=== PATIENT | female | born 1955 | race Caucasian/White ===

== ENCOUNTER 2020-05-11 08:43 | Outpatient (REF) | payer OTHER, SELFPAY ==
[2020-05-11 09:17] LABS: COVID-19 Test Negative (Negative)
== END 2020-05-11 08:44 | disposition home or self-care (01) ==
LOC: HO.EMPCOV 08:43
PROVIDERS: PCP Internal Medicine; Visit Provider Internal Medicine
DX: Z20.828 Contact with and (suspected) exposure to other viral communicable diseases (principal)
CPT/HCPCS: 87635; C9803

== ENCOUNTER 2020-05-13 08:45 | Outpatient (REF) | payer OTHER, SELFPAY ==
[2020-05-13 09:03] LABS: COVID-19 Test Negative (Negative)
== END 2020-05-13 08:46 | disposition home or self-care (01) ==
LOC: HO.EMPCOV 08:45
PROVIDERS: Visit Provider Internal Medicine
DX: Z20.828 Contact with and (suspected) exposure to other viral communicable diseases (principal)
CPT/HCPCS: 87635; C9803

== ENCOUNTER 2020-05-31 12:31 | Outpatient (REF) | payer OTHER, SELFPAY ==
[2020-05-31 14:16] LABS: COVID-19 Test Negative (Negative); IDNOW Serial# 55D5AD1C
== END 2020-05-31 12:32 | disposition home or self-care (01) ==
LOC: HO.EMPCOV 12:31
PROVIDERS: PCP Internal Medicine; Visit Provider Internal Medicine
DX: Z20.828 Contact with and (suspected) exposure to other viral communicable diseases (principal)
CPT/HCPCS: 87635; C9803

== ENCOUNTER 2023-01-29 08:41 | Outpatient (REF) | payer OTHER, SELFPAY ==
--- NOTE | ~2023-01-29 | XR_ITS ---
EXAMINATION: XR LUMBOSACRAL SPINE CLINICAL INFORMATION: Left lower back pain. COMPARISON: None available. TECHNIQUE: Three views of the lumbosacral spine. FINDINGS: Slight leftward curvature of the lumbar spine. Small pelvic calcifications are likely vascular. Extensive atherosclerotic aortoiliac calcifications. Bones are diffusely demineralized. Lumbar vertebral body heights are preserved. Mild loss of disc space height with degenerative changes at L4-L5. Facet arthritis in the lower lumbar spine. XR/XR lumbar spine 2-3V IMPRESSION: Mild loss of disc space height with degenerative changes at L4-L5. Additional imaging with CT scan or MRI should be considered for better visualization as these modalities are much more sensitive for detection of fracture or other underlying pathology.
[2023-01-29 09:07] LABS: MANUAL DIFF FLAG NO
[2023-01-29 09:29] LABS: Basophils Absolute Auto 0.1 X10*3/uL (0.0-0.2); Basophils Percent Auto 1.2 % (0-2); Eosinophils Absolute Auto 0.2 X10*3/uL (0.0-0.4); Eosinophils Percent Auto 2.2 % (0-4); Hematocrit 45.9 % (37.0-47.0); Hemoglobin 15.7 g/dl (12.0-16.0); Imm Gran Abs Auto 0.04 X10*3/uL (0.00-0.03); Imm Gran Pct Auto 0.5 % (0.0-0.4); Lymphocytes Absolute Auto 1.8 X10*3/uL (1.2-4.9); Lymphocytes Percent Auto 23.5 % (20-40); Mean Corpuscular HGB Conc 34.2 g/dl (31.0-35.0); Mean Corpuscular Hemoglobin 31.7 pg (27.0-33.0); Mean Corpuscular Volume 92.5 fL (80.0-98.0); Mean Platelet Volume 10.4 fL (9.4-12.3); Monocytes Absolute Auto 0.5 X10*3/uL (0.1-1.2); Neutrophils Percent Auto 65.6 % (45-73); Platelet Count 225 X10*3/uL (160-400); Red Blood Count 4.96 X10*6/uL (4.20-5.50); Red Cell Distribution Width 12.5 % (11.0-16.0); White Blood Count 7.6 X10*3/uL (4.8-10.8)
[2023-01-29 10:35] LABS: Alanine Aminotransferase 12 U/L (0-31); Alkaline Phosphatase 83 U/L (39-117); Anion Gap 13 (12-20); Aspartate Amino Transferase 16 U/L (5-31); Bilirubin Total 0.7 mg/dL (0.0-1.0); Blood Urea Nitrogen 10 mg/dL (9-16); Calcium 9.5 mg/dL (8.4-10.2); Carbon Dioxide 27 mmol/L (22-29); Chloride 104 mmol/L (96-108); Cholesterol 201 mg/dL (<200); Estimated Glomerular Filt Rate > 60; Glucose Random 101 mg/dL (60-115); HDL Cholesterol 48 mg/dL (>40); LDL Cholesterol Calculated 130 mg/dL (<100); Potassium 3.7 mmol/L (3.3-5.1); Sodium 140 mmol/L (135-145); Total Protein 6.9 g/dL (6.5-8.0); Triglycerides 118 mg/dL (<150)
== END 2023-01-29 08:42 | disposition home or self-care (01) ==
LOC: HO.LAB 08:41
PROVIDERS: PCP Internal Medicine; Visit Provider Internal Medicine Sports Medicine
DX: Z13.220 Encounter for screening for lipoid disorders (principal); M54.50 Low back pain, unspecified; I10 Essential (primary) hypertension
CPT/HCPCS: 36415; 72100; 80053; 80061; 85025

== ENCOUNTER 2023-03-16 14:53 | Outpatient (REF) | payer OTHER, SELFPAY | END 2023-03-16 14:54 | disposition home or self-care (01) | LOC: HO.LAB 14:53 | PROVIDERS: PCP Internal Medicine; Visit Provider Internal Medicine | DX: I10 Essential (primary) hypertension (principal) | CPT/HCPCS: 36415; 80051; 82565; 84520 ==

== ENCOUNTER 2023-07-06 08:12 | Outpatient (REF) | payer OTHER, SELFPAY ==
--- NOTE | ~2023-07-06 | MR_ITS ---
EXAMINATION: MR LUMBAR SPINE WITHOUT CONTRAST CLINICAL INFORMATION: Left lower extremity radiculopathy. COMPARISON: X-ray lumbar spine dated 01/29/2023. TECHNIQUE: Multiplanar, multisequence imaging was obtained. FINDINGS: VERTEBRAL BODIES AND PARASPINAL STRUCTURES: The marrow signal is within normal limits. There are no compression fractures. Mild retrosubluxation and loss of disc height evident at the L3-L4 level. The L5 vertebra is transitional and partially sacralized. The paraspinal soft tissues are unremarkable. There are moderate degenerative changes of the sacroiliac joints bilaterally. CONUS MEDULLARIS AND CAUDA EQUINE: The distal cord, conus tip, and cauda equina nerve roots are normal. SPINAL LEVELS: L1-L2: Well-hydrated normal appearance of the discs without central canal stenosis or foraminal narrowing. L2-L3: Very mild disc bulge and mild facet arthropathy without central canal stenosis or foraminal narrowing. L3-L4: Mild loss of disc height with endplate spurring and a diffuse disc bulge. A right bsqdbqkmszw-ev-zjgfl lateral recess disc extrusion results in mass effect upon the right L4 nerve root. Kdym-ok-tezdxsgn hypertrophic facet arthropathy with mild narrowing of the central canal. Bulging disc results in moderate right foraminal encroachment and mild left foraminal narrowing. L4-L5: Mild loss of disc height, more so posteriorly with a broad-based wanazpu-pm-isjoi subarticular zone disc protrusion distorting the ventral thecal sac. Moderate hypertrophic facet degeneration contributes to narrowing of the right subarticular zone and mass effect upon the right L5 nerve root. The lateral aspect of the disc protrusion also compresses the left L5 nerve root in the subarticular zone. Moderate central canal stenosis and moderate right foraminal narrowing. Bulging disc mildly encroaches upon the left neural foramen. Incidental mild edema in the endplates. L5-S1: Shallow central disc protrusion with an underlying annular fissure. Mild disc bulge with fwggxjwa-zc-lgncyr hypertrophic facet arthropathy. No central canal stenosis or foraminal narrowing. MR/MR lumbar spine wo con IMPRESSION: 1. Right paracentral to right lateral recess disc extrusion at the L3-L4 level with mass effect upon the right L4 nerve root. Mild narrowing of the central canal and moderate right foraminal narrowing. 2. Broad-based central to right subarticular zone disc protrusion at the L4-L5 level with moderate facet arthropathy. Findings result in mass effect upon both L5 nerve roots. Moderate central canal stenosis and moderate right foraminal narrowing. 3. Shallow central disc protrusion and underlying annular fissure at the L5-S1 level with anwzmnad-ru-nemsvt facet arthropathy, worse on the right side.
== END 2023-07-06 08:13 | disposition home or self-care (01) ==
LOC: HO.MRI 08:12
PROVIDERS: PCP Internal Medicine; Visit Provider Internal Medicine
DX: M54.16 Radiculopathy, lumbar region (principal)
CPT/HCPCS: 72148

== ENCOUNTER 2023-07-20 10:50 | Outpatient (AMB) | payer OTHER, SELFPAY ==
--- NOTE | 2023-07-20 11:08 | MHC.OFFVIS ---
Intake Intake Visit Reasons: back and leg pain Shoe Lacer Required: No Allergies acetaminophen [From TYLENOL] Allergy (Unknown, Unverified 02/26/20 17:54) UNKNOWN Penicillins [PENICILLINS] Allergy (Unknown, Unverified 02/26/20 17:54) UNKNOWN Assessment & Plan Assessment & Plan (1) Cervical radiculopathy: Code(s): M54.12 - Radiculopathy, cervical region Plan: Dear dr Navas, Thank you for referring Mrs Magallon to our office today. She is a very nice 68-year-old female who presents to the office today for evaluation of 2 separate symptoms. The 1st symptom is a left leg numbness that starts in her distal foot and works its way up to her left knee. It started a few months back. She does not recall a specific event where it started. It is aggravated with standing walking. It will be present however when she lays down. The 2nd symptom is numbness that starts in her left side of her neck and radiates down into her arm and hand. That can also be present throughout the day, but also is present in that nighttime. If she shifts her head or neck in a particular position she can make it go away. She does not report any specific weakness associated with these symptoms. She does not have any significant pain in the back or radiating down her leg or arm. She did have a little bit of pain in her left ankle last night she took tramadol for that. There is a slight amount of subscapular pain on the left side however. She had a lumbar MRI showing some degenerative discs and was sent today to see us for evaluation. PMH: Hypertension other than that she is healthy Social hx: She does not smoke, occasional alcohol, no recreational drugs Medications: Amlodipine and lisinopril Allergies: Penicillin and Tylenol Physical exam: Awake alert oriented no acute distress, she has full strength of bilateral upper and lower extremities. She has an absent biceps reflex on the left. No Shweta sign, no clonus, gait is normal Imaging review: She is a lumbar MRI done at [facility] showing degenerative disc disease at L3-4, L4-5 and L5-S1. There is right-sided disc degeneration at these levels causing some impingement in the lateral recess. Impression: 68-year-old female presents for evaluation of 2 separate symptoms. They both been going on for about 2 months. The 1st thing was numbness in the left side of her distal lower extremity which radiated up to her knee. She has not reporting associated back pain or any shooting leg pain. She has some mild disc degeneration at multiple levels with compression in the lateral recess but all of the findings are on the right side. The report suggests there could be some compression on the left at L4-5 but it is subtle compared to the right side. For now, her clinical presentation does not seem to be that of a lumbar radiculopathy either so I do not think these things are connected. It could be a peroneal neuropathy. Her motor function is intact, at this point is mainly sensory symptom. It has a little too early to order an EMG so I will watch him for another month and see where it goes in if it is no better I will get a lower extremity EMG. The 2nd issue has also been going on for few months and that deals with her neck and what I suspect to be a cervical radiculopathy radiating down into her arm with subscapular pain. It has a fairly common presentation and she has an absent biceps reflex on the left so wondering if C5-6 does not have some disc degeneration similar to what we see in her back. I am going to order cervical MRI and see her back in a month. Thank you for allowing us to care for your patient. The total time spent with this visit with this patient was 45 minutes reviewing history, physical exam, lumbar MRI imaging review, and implementation of treatment plan or further diagnostic testing Kye Jones MD,PhD [facility] Orders: Orders MR cervical spine wo con Today M54.12 - Radiculopathy, cervical region Coding Level of Care Code New Pt Level 4 (89084) Diagnoses Cervical radiculopathy M54.12
== END 2023-07-20 11:47 | disposition home or self-care (01) ==
PROVIDERS: PCP Internal Medicine; Referring Provider Internal Medicine; Visit Provider Physician Assistant
DX: M54.12 Radiculopathy, cervical region (principal)
CPT/HCPCS: 99204

== ENCOUNTER → 2023-07-20 10:50 | Outpatient (BNVA) | payer OTHER, SELFPAY | PROVIDERS: PCP Internal Medicine; Visit Provider Physician Assistant ==

== ENCOUNTER 2023-07-25 08:12 | Outpatient (REF) | payer OTHER, SELFPAY ==
--- NOTE | ~2023-07-25 | MR_ITS ---
EXAMINATION: MR CERVICAL SPINE WITHOUT CONTRAST CLINICAL INFORMATION: 68-year-old with radiculopathy, cervical region. Left arm pain and numbness. COMPARISON: None available. TECHNIQUE: MRI of the cervical spine was obtained using routine sequences without contrast. FINDINGS: ALIGNMENT: Moderate hyperlordosis centered at C5-C6. Slight anterolisthesis noted at T1-T2. CRANIOCERVICAL JUNCTION/C1-C2 ARTICULATIONS: Intact and aligned. Degenerative changes noted at the anterior atlantodental joint. Minor effusions noted bilaterally at these joints. VISUALIZED INTRACRANIAL STRUCTURES: Within normal limits. VERTEBRAL BODIES: There is a mild chronic, healed superior endplate compression deformity of the T3 vertebral body. Otherwise vertebral body heights are well-maintained. DISC SPACES AND ENDPLATES: There is severe disc space height loss at C5-C6, with disc desiccation, Schmorl's nodes and spondylosis. The remaining intervertebral disc space heights are relatively well-maintained. No destructive endplate changes. BONE MARROW: Type I degenerative marrow signal changes are noted along the endplates at C5-C6. No suspicious marrow replacing process or bone marrow edema. Small benign vertebral hemangioma within the T5 vertebral body also noted. C2-C3: No disc herniation or canal stenosis. Minor facet arthropathy noted on the left without significant neural foraminal stenosis. Note that there is tortuosity of the left vertebral artery which partially occupies the left neural foramen at this level and may be encroaching on the left C2 nerve root. C3-C4: Small disc osteophyte complex with tiny central disc protrusion with mild indentation of the ventral thecal sac without cord impingement or canal stenosis. Minor facet arthrosis noted with uncovertebral spurring noted bilaterally with slight neural foraminal narrowing on the right. C4-C5: Small central disc herniation, with encroachment on the central dural sac without cord impingement or canal stenosis. Ligamentum flavum thickening or buckling noted with moderate to marked bilateral facet joint arthropathy and mild uncovertebral spurring with mild right-sided foraminal narrowing. C5-C6: Broad-based disc osteophyte complex noted with effacement of the ventral dural sac without cord compression. Mild central canal stenosis is noted associated with ligamentum flavum thickening or buckling. There is uncovertebral spurring and bilateral facet arthrosis with mild bilateral neural foraminal stenosis. C6-C7: Broad-based disc protrusion is noted, with mild encroachment on the ventral dural sac without cord impingement. Mild ligamentum flavum thickening or buckling is noted without significant spinal canal stenosis. Uncovertebral spurring noted with facet arthropathy, with mild left-sided neural foraminal stenosis. C7-T1: No disc herniation or canal stenosis. Zvbd-dh-loxeeiae facet arthropathy noted on the right without significant neural foraminal stenosis. Small perineural cysts in the neural foramina bilaterally. T1-T2: Slight anterolisthesis with mild unroofing of the posterior disc margin without disc herniation or cord impingement. Ligamentum flavum thickening is noted with mild canal stenosis. There is moderate bilateral facet joint arthropathy with mild bilateral neural foraminal stenosis. There is a 1.2 cm perineural cyst in the left neural foramen. There is multilevel bilateral facet joint arthropathy throughout the visualized upper thoracic spine, not imaged in the axial plane with multilevel bilateral perineural cysts and varying degrees of multilevel bilateral foraminal stenosis. This can be better evaluated with dedicated MRI of the thoracic spine if clinically warranted. SPINAL CORD: The cervical and visualized upper thoracic spinal cord is normal in morphology, caliber and signal intensity throughout. EXTRACRANIAL SOFT TISSUES: The visualized extracranial head/neck soft tissues are unremarkable within the limitations of the study. Signal voids are noted in the visualized major arterial and venous structures. MR/MR cervical spine wo con IMPRESSION: 1. Hyperlordosis centered at C5-C6 with discogenic degenerative changes and spondylosis at this level. 2. Disc osteophyte complex at C5-C6 with mild central canal stenosis without cord impingement. Small central disc protrusions at C3-C4 and C4-C5 without cord impingement or canal stenosis. Broad-based disc protrusion at C6-C7. 3. Multilevel DJD as described above, with mild left-sided neural foraminal stenosis at C6-C7, mild bilateral neural foraminal stenosis at C5-C6, mild right-sided neural foraminal stenosis at C4-C5, mild right-sided neural foraminal stenosis at C3-C4 and mild bilateral neural foraminal stenosis at T1-T2. 4. Slight anterolisthesis at T1-T2 with mild canal stenosis and mild bilateral neural foraminal stenosis at this level. A 1.2 cm perineural cyst in the left neural foramen at this level. 5. Mild chronic, healed superior endplate compression fracture deformity of T3 without retropulsion. 6. Mild degenerative changes at the anterior atlantodental joint and small effusions at the occipitoatlantal and C1-C2 articulations bilaterally. 7. Multilevel bilateral facet joint arthropathy throughout the visualized upper thoracic spine with varying degrees of bilateral neural foraminal stenosis. This can be better evaluated with dedicated MRI of the thoracic spine if clinically warranted.
== END 2023-07-25 08:13 | disposition home or self-care (01) ==
LOC: HO.MRI 08:12
PROVIDERS: PCP Internal Medicine; Visit Provider Physician Assistant
DX: M54.12 Radiculopathy, cervical region (principal)
CPT/HCPCS: 72141

== ENCOUNTER 2023-08-10 15:49 | Outpatient (REF) | payer OTHER, SELFPAY ==
--- NOTE | ~2023-08-10 | MR_ITS ---
EXAMINATION: MR BRAIN WITHOUT CONTRAST CLINICAL INFORMATION: Left arm and leg paresthesia. COMPARISON: None available. TECHNIQUE: MRI of the brain was obtained using routine sequences without contrast. FINDINGS: No focal restricted diffusion is demonstrated to suggest acute or subacute cerebral ischemia. No evidence of acute or chronic hemorrhagic products on heme-sensitive imaging. Scattered and partially confluent periventricular, deep white matter, and brainstem T2 FLAIR hyperintensities consistent with moderate underlying microangiopathy. Proportional prominence of the ventricles and sulcal spaces without evidence of obstructive hydrocephalus. No abnormal mass effect. No midline shift. Normal appearance of the pituitary gland. Normal positioning of the cerebellar tonsils. Normal arterial and venous vascular flow voids are present. Normal, homogeneous marrow signal. Mild mucosal thickening of the paranasal sinuses. No signal abnormalities within the mastoids. MR/MR head/brain wo con IMPRESSION: 1. No acute intracranial abnormalities. 2. Moderate underlying microangiopathy and generalized cerebral volume loss.
== END 2023-08-10 15:50 | disposition home or self-care (01) ==
LOC: HO.MRI 15:49
PROVIDERS: PCP Internal Medicine; Visit Provider Internal Medicine
DX: G57.12 Meralgia paresthetica, left lower limb (principal)
CPT/HCPCS: 70551

== ENCOUNTER 2023-09-27 13:03 | Outpatient (REF) | payer OTHER, SELFPAY ==
--- NOTE | ~2023-09-27 | US_ITS ---
EXAMINATION: NONINVASIVE ASSESSMENT OF THE ARTERIES OF BOTH LOWER EXTREMITIES CLINICAL INFORMATION: Pain and numbness. COMPARISON: None. TECHNIQUE: Segmental ankle pulse volume recording, pressure measurement at the ankle and ankle brachial indices were obtained of the lower extremity arterial system bilaterally. This study was performed at rest only. FINDINGS: a) AT REST: 1. The ankle-brachial indices are: Right 1.01 and left 0.66. >0.97-1.25 = normal - no significant arterial disease. 0.75-0.96 = mild peripheral arterial disease. 0.5-0.74 = moderate peripheral arterial disease. <0.50 = severe peripheral arterial disease. 2. Segmental pressure at ankle: 145 mmHg on the right and 95 mmHg on the left. 3. PVR waveform at ankle: Normal in the right. Dampened on the left. US/US JESSICA complete IMPRESSION: Abnormal left JESSICA and dampened PVR waveform consistent with moderate peripheral arterial disease.
== END 2023-09-27 13:04 | disposition home or self-care (01) ==
LOC: HO.US 13:03
PROVIDERS: PCP Internal Medicine; Visit Provider Internal Medicine
DX: R20.2 Paresthesia of skin (principal); M79.604 Pain in right leg; M79.605 Pain in left leg
CPT/HCPCS: 93923

== ENCOUNTER 2023-10-23 14:29 | Outpatient (AMB) | payer OTHER, SELFPAY ==
[2023-10-23 14:31] VITALS: BMI 23.7
--- NOTE | 2023-10-23 14:31 | MHC.OFFVIS ---
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 Left LE cramping, pain, foot coldness w/ ambulation. Pt states that in the winter, she would get coldness in her left LE. 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 Of note she works in our [employer] department. She he has a prior history of smoking which she quit nearly 10 years ago. In addition she is a nondiabetic. She reports that she has difficulty ambulating more than a block. She notes that her left calf starts cramping after a block. That being said she was able to complete the [place] walk this past weekend where she walked what I believe to be nearly 5 km. She did have difficulty but was able to complete the walk. She has undergone noninvasive JESSICA testing. Of note she was most recently started on a baby aspirin and statin. She now presents to us for vascular evaluation. COUNTS INCLUDE 234 BEDS AT THE [facility] Family History (Updated 10/23/23 @ 14:39 by JORGE ALBERTO Iglesias) Mother Cardiac arrest Social History Patient Tobacco Use Status: Never used Tobacco Review of Systems Const All systems reviewed & are unremarkable except as noted in HPI and below Reports no additional complaints ENT Reports Normal hearing present Card Denies chest pain, Denies chest pain at rest, Denies chest pain with activity and Denies pedal edema Resp Denies cough GI Denies abdominal pain Musc Denies abnormal gait, Denies muscle cramps and Denies radiating pain into limb Skin/Breast Denies skin ulcer and Denies wounds Neuro Reports Normal hearing present and Denies abnormal gait Psych Reports no additional complaints Physical Exam Vital Signs: BMI result Body Mass Index 23.7 Const General: cooperative, healthy appearing and comfortable Orientation/consciousness: oriented to person, oriented to place and oriented to time HEENT Head: Yes normal to inspection Neck Neck: Yes normal visual inspection Carotids: no bruits Chest Chest palpation & inspection: normal inspection of the chest Resp Effort & Inspection: normal respiratory effort and able to speak in complete sentences Auscultation: clear to auscultation bilaterally, no crackles, no rales, no rhonchi and no wheezes Cardio Other: Bilateral palpable posterior tibial pulse Rate: regular rate Rhythm: regular rhythm Heart sounds: S1 normal heart sound present and S2 normal heart sound present Bruits: no carotid bruits Peripheral pulses: Peripheral pulses 2+ throughout GI Inspection: Yes normal to inspection Skin Wounds: no wounds Hair: normal Neuro General: oriented to person, oriented to place and oriented to time Cranial nerves: Yes CN's II-XII intact bilaterally and Yes Normal hearing present Cognition (Neuro): normal cognition Motor exam (neuro): 5/5 motor strength present throughout Extrem Other: venous exam: No significant superficial varicosities or spider telangiectasias, minimal edema General: No clubbing, No cyanosis and No edema Psych Appearance: grossly normal Mental Status: mental status grossly normal Speech and movement: Normal speech and movement present Results Reviewed Results Reviewed: Arterial testing dated 09/27/2023 demonstrates an JESSICA on the right of 1.01 and on the left of 0.66 Assessment & Plan Assessment & Plan (1) PAD (peripheral artery disease): Code(s): I73.9 - Peripheral vascular disease, unspecified Category: Medical Plan: In short patient has an element claudication. I did review the pathophysiology of peripheral vascular disease with the patient. In addition we did discuss routine conservative measures including a healthy diet and the importance of exercise and ambulation. We did discuss risk factor modification. The concern here is that she has an JESSICA on the left of 0.66 but I am able to appreciate a palpable pulse. I have taken the liberty of ordering a CT angiogram with runoff to better elucidate where this stenosis truly is. She will follow up with us after testing. Thank you for allowing us to participate in this patient's care. If there are any questions or concerns please do not hesitate to contact us. Orders: Orders Blood Urea Nitrogen Today I73.9 - Peripheral vascular disease, unspecified Creatinine Today I73.9 - Peripheral vascular disease, unspecified CT angio abd aorta runoff 1 Week I73.9 - Peripheral vascular disease, unspecified Coding Level of Care Code New Pt Level 4 (63880) Diagnoses PAD (peripheral artery disease) I73.9
== END 2023-10-23 14:58 | disposition home or self-care (01) ==
PROVIDERS: PCP Internal Medicine; Visit Provider Surgery Vascular Surgery
DX: I73.9 Peripheral vascular disease, unspecified (principal)
CPT/HCPCS: 99204

== ENCOUNTER → 2023-10-23 14:29 | Outpatient (BNVA) | payer OTHER, SELFPAY | PROVIDERS: PCP Internal Medicine; Visit Provider Surgery Vascular Surgery ==

== ENCOUNTER 2023-10-25 08:49 | Outpatient (REF) | payer OTHER, SELFPAY ==
[2023-10-25 09:29] LABS: Blood Urea Nitrogen 11 mg/dL (9-16); Estimated Glomerular Filt Rate > 60
== END 2023-10-25 08:50 | disposition home or self-care (01) ==
LOC: HO.LAB 08:49
PROVIDERS: PCP Internal Medicine; Visit Provider Surgery Vascular Surgery
DX: I73.9 Peripheral vascular disease, unspecified (principal)
CPT/HCPCS: 36415; 82565; 84520

== ENCOUNTER 2023-10-26 15:42 | Outpatient (REF) | payer OTHER, SELFPAY ==
--- NOTE | ~2023-10-26 | CT_ITS ---
EXAMINATION: CT ANGIOGRAPHY ABDOMEN, PELVIS AND LOWER EXTREMITY RUNOFF WITH CONTRAST CLINICAL INFORMATION: Peripheral vascular disease COMPARISON: JESSICA 09/27/2023 TECHNIQUE: Initial noncontrast localizing videographer images were obtained. Timing boluses at the level of the celiac and popliteal arteries were calculated. Subsequently, arterial phase multidetector volumetric imaging was performed through the abdomen, pelvis and bilateral lower extremities following the administration of 150 mL Omnipaque 350 intravenous contrast. No contrast reaction reported Sagittal and coronal reformatted images were obtained on the technologist workstation. After extensive post-processing on a dedicated 3-D workstation, 3-D reformatted images were uploaded to PACS and reviewed as well. This CT examination was performed using dose optimization techniques as appropriate, variously including the following: *Automated exposure control *Adjustment of mA and/or kV according to patient size (this includes techniques or standardized protocols for targeted exams where dose is matched to indication/reason for exam; i.e. extremities or head) *Use of iterative reconstruction technique DLP: 616 mGy-cm FINDINGS: VASCULAR: Abdominal Aorta: Moderate mixed atherosclerotic disease. No dissection or aneurysmal dilation. Normal aortic taper. Mesenteric Arteries: The celiac axis, superior mesenteric artery and inferior mesenteric artery are patent. Renal Artery: Single renal arteries bilaterally. Renal arteries are patent and without stenosis or other vascular anomaly. Right Lower Extremity: Right Common Iliac Artery: Patent. Moderate calcified atherosclerotic disease resulting in no high grade stenosis. Right External Iliac Artery: Patent. Mild calcified atherosclerotic disease resulting in no high grade stenosis. Right Internal Iliac Artery: Patent. Common Femoral Artery: Patent. Severe calcified atherosclerotic disease resulting in no high grade stenosis. Superficial Femoral Artery: Patent. Mild to moderate calcified atherosclerotic disease throughout. Focal short segment high-grade stenosis (5; 737) of the mid segment. Profunda Femoris: Patent. Popliteal Artery: Patent. Moderate mixed atherosclerotic disease resulting in focal short segment high-grade stenosis at the level of the femoral condyle (5; 1100). Tibioperoneal Trunk: Patent. Anterior Tibial Artery: Patent. Peroneal Artery: Patent. Posterior Tibial Artery: Patent. Dorsalis Pedis: Patent. Plantar Arch: Patent. Left lower extremity: Left Common Iliac Artery: Patent. Moderate calcified atherosclerotic disease resulting in no high grade stenosis. Left External Iliac Artery: Patent. Mild calcified atherosclerotic disease resulting in no high grade stenosis. Left Internal Iliac Artery: Patent. Common Femoral Artery: Patent. Moderate calcified atherosclerotic disease resulting in no high grade stenosis. Superficial Femoral Artery: Patent. Moderate mixed atherosclerotic disease resulting in multifocal high-grade stenoses throughout the length. Profunda Femoris: Patent. Popliteal Artery: Patent. Moderate mixed atherosclerotic disease resulting in focal short segment high-grade stenosis at the level of the femoral condyle (5; 1160). Tibioperoneal Trunk: Patent. Anterior Tibial Artery: Patent. Peroneal Artery: Patent. Posterior Tibial Artery: Patent. Dorsalis Pedis: Patent. Plantar Arch: Patent. NONVASCULAR FINDINGS: ABDOMEN/PELVIS: Lung Bases: The visualized lung bases are clear. Liver: Homogeneous in attenuation. Normal in size. Gallbladder: Noninflamed. Biliary System: No intrahepatic or extrahepatic biliary dilation. Pancreas: Homogeneous in attenuation. Spleen: Normal in size. Genitourinary: Bilateral kidneys demonstrate symmetric enhancement. No perinephric fluid collection. No renal calculi. No hydroureteronephrosis. Adrenal Glands: Unremarkable. Reproductive: Uterus and and bilateral adnexa are unremarkable. Gastrointestinal: The visualized alimentary tract is normal in course. No evidence of obstruction. Appendix: The appendix is seen in its entirety and is unremarkable. Peritoneum: No pneumoperitoneum. No intra-abdominal fluid collection. Lymph Nodes: No pathologically enlarged abdominal or pelvic lymph nodes. Soft Tissues/Musculoskeletal: Multilevel degenerative changes of the lumbar spine. CT/CT angio abd aorta runoff IMPRESSION: VASCULAR: Abdomen/Pelvis: Moderate abdominal aortic atherosclerotic calcification without aneurysm, dissection, or stenosis. Right Lower Extremity: 1. Short segment high-grade stenoses of the mid superficial and proximal popliteal arteries. 2. Three-vessel runoff to the foot. Left Lower Extremity: 1. Multifocal high-grade stenoses throughout the SFA and popliteal arteries. 2. Three-vessel runoff to the foot. NONVASCULAR: No acute abdominopelvic findings. Fleischner guidelines were followed.
[2023-10-26] MEDS: iohexoL 350 MG/ML 100 ML INFUS..BTL IV (16:14)
== END 2023-10-26 15:43 | disposition home or self-care (01) ==
LOC: HO.CT 15:42
PROVIDERS: PCP Internal Medicine; Visit Provider Surgery Vascular Surgery
DX: I73.9 Peripheral vascular disease, unspecified (principal)
CPT/HCPCS: 75635; Q9967

== ENCOUNTER 2023-11-27 13:52 | Outpatient (AMB) | payer OTHER, SELFPAY ==
--- NOTE | 2023-11-27 14:10 | A.OFFVIS_ITS ---
Vital Signs 11/27/23 14:11 Height 5 ft 4 in Weight 138 lb BMI 23.7 Intake Visit Reasons: f/u s/p CT Angio with runoff 10/26/23 Intake Note: follow up Left LE pain,cramping and nocturnal coldness w/ ambulation. s/p CTA w/ runoff 10/26/23 Accompanied by: Self / Same As Patient Allergies acetaminophen [From TYLENOL] Allergy (Unknown, Unverified 11/27/23 14:13) UNKNOWN Penicillins [PENICILLINS] Allergy (Unknown, Unverified 11/27/23 14:13) UNKNOWN HPI HPI f/u s/p CT Angio with runoff 10/26/23: Details: Very pleasant 68-year-old female presents for follow-up regarding peripheral vascular disease. She reports she is actually ambulating a little bit better. She is able to go about a block. She has a prior history of smoking where she quit nearly 10 years ago and is nondiabetic. She now presents for follow-up w ith CT angiogram. PFSH Family History Mother Cardiac arrest Social History Patient Tobacco Use Status: Never used Tobacco Review of Systems Const All systems reviewed & are unremarkable except as noted in HPI and below Reports no additional complaints ENT Reports Normal hearing present Card Denies chest pain, Denies chest pain at rest, Denies chest pain with activity and Denies pedal edema Resp Denies cough GI Denies abdominal pain Musc Denies abnormal gait, Denies muscle cramps and Denies radiating pain into limb Skin/Breast Denies skin ulcer and Denies wounds Neuro Reports Normal hearing present and Denies abnormal gait Psych Reports no additional complaints Physical Exam Vital Signs: BMI result Body Mass Index 23.7 Const General: cooperative, healthy appearing and comfortable Orientation/consciousness: oriented to person, oriented to place and oriented to time HEENT Head: Yes normal to inspection Neck Neck: Yes normal visual inspection Carotids: no bruits Chest Chest palpation & inspection: normal inspection of the chest Resp Effort & Inspection: normal respiratory effort and able to speak in complete sentences Auscultation: clear to auscultation bilaterally, no crackles, no rales, no rhonchi and no wheezes Cardio Rate: regular rate Bruits: no carotid bruits GI Inspection: Yes normal to inspection Skin Wounds: no wounds Hair: normal Neuro General: oriented to person, oriented to place and oriented to time Cranial nerves: Yes CN's II-XII intact bilaterally and Yes Normal hearing present Cognition (Neuro): normal cognition Motor exam (neuro): 5/5 motor strength present throughout Extrem Other: venous exam: No significant superficial varicosities or spider telangiectasias, minimal edema General: No clubbing, No cyanosis and No edema Psych Appearance: grossly normal Mental Status: mental status grossly normal Speech and movement: Normal speech and movement present Results Reviewed Results Reviewed: CT angiogram reviewed written reports and images and demonstrates right side short segment high-grade stenosis of mid SFA. Left side multi focal stenosis. Aorta as significant atherosclerotic disease as well. Written report and images were reviewed. Assessment & Plan Assessment & Plan (1) PAD (peripheral artery disease): Code(s): I73.9 - Peripheral vascular disease, unspecified Category: Medical Plan: In short patient appears to have stable claudication. She is able to ambulate a block. I have taken the liberty of starting her on cilostazol. We did discuss walking and exercise. She will follow up with us in approximately 6 months time with a surveillance arterial ultrasound. Should symptoms worsen or she is unable to tolerate the cilostazol happy to see her back sooner. Thank you for allowing us to assist in her care. If there are any questions or concerns please do not hesitate to contact us. Orders: Orders US arterial duplex LE BI 6 Months I73.9 - Peripheral vascular disease, unspecified Medications: New cilostazol 100 mg PO BID 180 tabs 1RF Coding Level of Care Code Est Pt Level 4 (34272) Diagnoses PAD (peripheral artery disease) I73.9
[2023-11-27 14:11] VITALS: BMI 23.7
== END 2023-11-27 14:31 | disposition home or self-care (01) ==
PROVIDERS: PCP Internal Medicine; Visit Provider Surgery Vascular Surgery
DX: I73.9 Peripheral vascular disease, unspecified (principal)
CPT/HCPCS: 99213

== ENCOUNTER → 2023-11-27 13:52 | Outpatient (BNVA) | payer OTHER, SELFPAY | PROVIDERS: PCP Internal Medicine; Visit Provider Surgery Vascular Surgery ==

== ENCOUNTER 2023-12-10 08:43 | Outpatient (REF) | payer OTHER, SELFPAY ==
[2023-12-10 10:07] LABS: Anion Gap 12 (12-20); Aspartate Amino Transferase 19 U/L (5-31); Blood Urea Nitrogen 14 mg/dL (9-16); Carbon Dioxide 29 mmol/L (22-29); Chloride 105 mmol/L (96-108); Cholesterol 187 mg/dL (<200); Estimated Glomerular Filt Rate > 60; HDL Cholesterol 42 mg/dL (>40); LDL Cholesterol Calculated 119 mg/dL (<100); Potassium 3.9 mmol/L (3.3-5.1); Sodium 142 mmol/L (135-145); Triglycerides 130 mg/dL (<150)
== END 2023-12-10 08:44 | disposition home or self-care (01) ==
LOC: HO.LAB 08:43
PROVIDERS: PCP Internal Medicine; Visit Provider Internal Medicine
DX: E78.5 Hyperlipidemia, unspecified (principal)
CPT/HCPCS: 36415; 80051; 80061; 82565; 84450; 84520

== ENCOUNTER 2024-05-26 12:28 | Outpatient (REF) | payer OTHER, SELFPAY ==
--- NOTE | ~2024-05-26 | US_ITS ---
EXAMINATION: US NONINVASIVE ASSESSMENT OF THE BILATERAL LOWER EXTREMITY WITH ARTERIAL DUPLEX AND ANKLE BRACHIAL INDICES (ABIS) CLINICAL INFORMATION: Peripheral vascular disease COMPARISON: JESSICA on 09/27/2023 TECHNIQUE: Duplex Doppler techniques with waveform analysis and measurement of velocities in the common femoral, profunda femoris, superficial femoral, popliteal and tibial arteries were performed. In addition, ankle pulse volume recordings, ankle pressure measurements and ankle brachial indices were obtained of the bilateral lower extremity arterial system. The study was performed only at rest. FINDINGS: NONINVASIVE ASSESSMENT OF THE ARTERIES OF BILATERAL LOWER EXTREMITIES WITH ABIs: RIGHT LEG: Ankle-brachial index: 1.15 Ankle PVR: Abnormal LEFT LEG: Ankle-brachial index: 1.07 Left ankle PVR: Abnormal JESSICA Reference: 0.9 - 1.4 = normal - no significant arterial disease 0.7 - 0.89 = mild peripheral arterial disease 0.51 - 0.69 = moderate peripheral arterial disease 0.50 = severe peripheral arterial disease RIGHT LOWER EXTREMITY DUPLEX ULTRASOUND: Common femoral artery: 227 cm/s. Diastolic flow reversal: Yes Profunda femoris artery: 174 cm/s. Diastolic flow reversal: Yes Superficial femoral artery (proximal): 117 cm/s. Diastolic flow reversal: Yes Superficial femoral artery (mid): 135 cm/s. Diastolic flow reversal: Yes Superficial femoral artery (distal): 145 cm/s. Diastolic flow reversal: Yes Popliteal artery: 104 cm/s Diastolic flow reversal: Yes Posterior tibial artery: 97 cm/s Diastolic flow reversal: Yes LEFT LOWER EXTREMITY DUPLEX ULTRASOUND: Common femoral artery: 164 cm/s. Diastolic flow reversal: Yes Profunda femoris artery: 126 cm/s. Diastolic flow reversal: Yes Superficial femoral artery (proximal): 183 cm/s. Diastolic flow reversal: Yes Superficial femoral artery (mid): 106 cm/s. Diastolic flow reversal: Yes Superficial femoral artery (distal): 397 cm/s. Diastolic flow reversal: No Popliteal artery: 138 cm/s Diastolic flow reversal: No Posterior tibial artery: 90 cm/s Diastolic flow reversal: No US/US arterial duplex BI w/ JESSICA IMPRESSION: 1. Severe stenosis of the distal left superficial femoral artery. 2. Normal bilateral ABIs. Electronically signed by: Shannon Barnes MD 05/26/2024 04:43 PM [facility]
== END 2024-05-26 12:29 | disposition home or self-care (01) ==
LOC: HO.US 12:28
PROVIDERS: PCP Internal Medicine; Visit Provider Surgery Vascular Surgery
DX: I73.9 Peripheral vascular disease, unspecified (principal)
CPT/HCPCS: 93922; 93925

== ENCOUNTER 2024-06-12 14:48 | Outpatient (AMB) | payer OTHER, SELFPAY ==
--- NOTE | 2024-06-12 14:55 | MHC.OFFVIS ---
Intake Visit Reasons: 6 mo follow up [facility] 05/26/2024 Intake Note: Patient presents for 6 month follow up arterial 05/26/24. No complaints. Allergies acetaminophen [From TYLENOL] Allergy (Unknown, Verified 06/12/24 14:56) UNKNOWN Penicillins [PENICILLINS] Allergy (Unknown, Verified 06/12/24 14:56) UNKNOWN HPI HPI 6 mo follow up Art 05/26/2024: Details: Very pleasant 69-year-old female presents for routine surveillance follow-up regarding peripheral vascular disease. She reports that she is doing somewhat better. The cold sensation that she had been experiencing at night along with the cramping has improved significantly. She is currently being maintained on cilostazol along with an aspirin and statin. She reports that she can walk 2-3 blocks easily with no significant difficulty. She now presents for follow-up with noninvasive arterial testing [facility] Family History Mother Cardiac arrest Social History Patient Tobacco Use Status: Never used Tobacco Review of Systems Const All systems reviewed & are unremarkable except as noted in HPI and below Reports no additional complaints ENT Reports Normal hearing present Card Denies chest pain, Denies chest pain at rest, Denies chest pain with activity and Denies pedal edema Resp Denies cough GI Denies abdominal pain Musc Denies abnormal gait, Denies muscle cramps and Denies radiating pain into limb Skin/Breast Denies skin ulcer and Denies wounds Neuro Reports Normal hearing present and Denies abnormal gait Psych Reports no additional complaints Physical Exam Const General: cooperative, healthy appearing and comfortable Orientation/consciousness: oriented to person, oriented to place and oriented to time HEENT Head: Yes normal to inspection Neck Neck: Yes normal visual inspection Carotids: no bruits Chest Chest palpation & inspection: normal inspection of the chest Resp Effort & Inspection: normal respiratory effort and able to speak in complete sentences Auscultation: clear to auscultation bilaterally, no crackles, no rales, no rhonchi and no wheezes Cardio Other: Bilateral DP signal Rate: regular rate Rhythm: regular rhythm Heart sounds: S1 normal heart sound present and S2 normal heart sound present Bruits: no carotid bruits GI Inspection: Yes normal to inspection Skin Wounds: no wounds Hair: normal Neuro General: oriented to person, oriented to place and oriented to time Cranial nerves: Yes CN's II-XII intact bilaterally and Yes Normal hearing present Cognition (Neuro): normal cognition Motor exam (neuro): 5/5 motor strength present throughout Extrem Other: venous exam: No significant superficial varicosities or spider telangiectasias, minimal edema General: No clubbing, No cyanosis and No edema Psych Appearance: grossly normal Mental Status: mental status grossly normal Speech and movement: Normal speech and movement present Results Reviewed Results Reviewed: Noninvasive arterial testing dated 05/26/2024 demonstrates JESSICA on the right of 1.15 and on the left of 1.07. There is concern of stenosis in the left SFA. Written report and images were reviewed. Assessment & Plan Assessment & Plan (1) PAD (peripheral artery disease): Code(s): I73.9 - Peripheral vascular disease, unspecified Category: Medical Plan: In short patient has stable claudication. I did review the pathophysiology of peripheral vascular disease with the patient. In addition we did discuss routine conservative measures including a healthy diet and the importance of exercise and ambulation. We did discuss risk factor modification. The patient will continue to to follow-up with surveillance follow-up in approximately 1 year. Thank you for allowing us to participate in this patient's care. If there are any questions or concerns please do not hesitate to contact us. Medications: Refilled cilostazol 100 mg PO BID 180 tabs 2RF Coding Level of Care Code Est Pt Level 4 (66575) Diagnoses PAD (peripheral artery disease) I73.9
== END 2024-06-12 15:19 | disposition home or self-care (01) ==
PROVIDERS: PCP Internal Medicine; Visit Provider Surgery Vascular Surgery
DX: I73.9 Peripheral vascular disease, unspecified (principal)
CPT/HCPCS: 99214

== ENCOUNTER → 2024-06-12 14:48 | Outpatient (BNVA) | payer OTHER, SELFPAY | PROVIDERS: PCP Internal Medicine; Visit Provider Surgery Vascular Surgery ==

== ENCOUNTER 2024-10-21 14:45 | Outpatient (AMB) | payer OTHER, SELFPAY ==
--- NOTE | 2024-10-21 14:52 | A.OFFVIS_ITS ---
Intake Visit Reasons: Leg has been going weak. Intake Note: Patient presents for leg weakness. Patient states her left leg is painful and achy. Right leg is too but left is worse. Has been happening for the last few weeks. No injury. Accompanied by: Self / Same As Patient Allergies acetaminophen [From TYLENOL] Allergy (Unknown, Verified 10/21/24 14:53) UNKNOWN Penicillins [PENICILLINS] Allergy (Unknown, Verified 10/21/24 14:53) UNKNOWN HPI HPI Leg has been going weak.: Details: The patient is a 69-year-old female presenting with lower extremity pain and cramping, primarily affecting the left leg and sometimes the right leg, worsening in recent months. The pain starts when walking, particularly on stairs and long distances, described as crampy, making her legs feel tight. She benefits from periods of rest, noting the lack of previous cold symptoms in her feet since starting cilostazol and blood pressure medication. She reports difficulty participating in physical activities due to her symptoms, with a recent failure to complete an MS walk and feeling pain during a dance lesson. There is also concern for arthritis, adding to her condition, with possible involvement of her lower back history. She is being maintained on aspirin statin and cilostazol. She had actually been seen with us in June and appeared to have reasonable arterial at that time. She now presents for re- evaluation. [facility] Family History Mother Cardiac arrest Social History Patient Tobacco Use Status: Never used Tobacco Review of Systems Const All systems reviewed & are unremarkable except as noted in HPI and below Reports no additional complaints ENT Reports Normal hearing present Card Denies chest pain, Denies chest pain at rest, Denies chest pain with activity and Denies pedal edema Resp Denies cough GI Denies abdominal pain Musc Denies abnormal gait, Denies muscle cramps and Denies radiating pain into limb Skin/Breast Denies skin ulcer and Denies wounds Neuro Reports Normal hearing present and Denies abnormal gait Psych Reports no additional complaints Physical Exam Const General: cooperative, healthy appearing and comfortable Orientation/consciousness: oriented to person, oriented to place and oriented to time HEENT Head: Yes normal to inspection Neck Neck: Yes normal visual inspection Carotids: no bruits Chest Chest palpation & inspection: normal inspection of the chest Resp Effort & Inspection: normal respiratory effort and able to speak in complete sentences Auscultation: clear to auscultation bilaterally, no crackles, no rales, no rhonchi and no wheezes Cardio Other: Palpable posterior tibial pulses Rate: regular rate Rhythm: regular rhythm Heart sounds: S1 normal heart sound present and S2 normal heart sound present Bruits: no carotid bruits Peripheral pulses: Peripheral pulses 2+ throughout GI Inspection: Yes normal to inspection Skin Wounds: no wounds Hair: normal Neuro General: oriented to person, oriented to place and oriented to time Cranial nerves: Yes CN's II-XII intact bilaterally and Yes Normal hearing present Cognition (Neuro): normal cognition Motor exam (neuro): 5/5 motor strength present throughout Extrem Other: venous exam: No significant superficial varicosities or spider telangiectasias, minimal edema General: No clubbing, No cyanosis and No edema Psych Appearance: grossly normal Mental Status: mental status grossly normal Speech and movement: Normal speech and movement present Assessment & Plan Assessment & Plan (1) PAD (peripheral artery disease): Code(s): I73.9 - Peripheral vascular disease, unspecified Category: Medical Plan: During this visit, I discussed with the patient the progression of her symptoms and the plan to perform non-invasive arterial ultrasounds to assess and confirm any vascular insufficiency. I explained the potential need for an angioplasty if blockages are discovered, highlighting the advantages and potential risks. Medication management with cilostazol continues, with review of its benefits and role. Options for managing leg pain, including consideration of arthritis or nerve pain from former back issues, were reviewed, suggesting anti-inflammatory use with approval. The patient agreed to proceed with the ultrasound and understands the reasons behind current and potential future interventions. Follow-up will depend on the ultrasound results and discussed treatment pathways. Orders: Orders US arterial duplex LE BI 1 Week I73.9 - Peripheral vascular disease, unspecified Coding Level of Care Code Est Pt Level 4 (85836) Complex EM visit Add On G2211 Diagnoses PAD (peripheral artery disease) I73.9
== END 2024-10-21 15:41 | disposition home or self-care (01) ==
LOC: HO.HVS 14:45
PROVIDERS: PCP Internal Medicine; Visit Provider Surgery Vascular Surgery
DX: I73.9 Peripheral vascular disease, unspecified (principal)
CPT/HCPCS: 99214

== ENCOUNTER 2024-11-07 09:18 | Outpatient (REF) | payer OTHER, SELFPAY ==
--- NOTE | ~2024-11-07 | US_ITS ---
EXAMINATION: US NONINVASIVE ASSESSMENT OF THE BILATERAL LOWER EXTREMITY WITH ARTERIAL DUPLEX AND ANKLE BRACHIAL INDICES (ABIS) CLINICAL INFORMATION: COMPARISON: 05/26/2024, and correlation made with CT angiogram of abdominal aorta with runoff 10/26/2023. TECHNIQUE: Duplex Doppler techniques with waveform analysis and measurement of velocities in the common femoral, profunda femoris, superficial femoral, popliteal and tibial arteries were performed. In addition, ankle pulse volume recordings, ankle pressure measurements and ankle brachial indices were obtained of the lower extremity arterial system. The study was performed only at rest. FINDINGS: NONINVASIVE ASSESSMENT OF THE ARTERIES OF BILATERAL LOWER EXTREMITIES WITH ABIs: RIGHT LEG: Ankle-brachial index: 1.08 Segmental BP: PT = 138 DP = 136 Ankle PVR: Biphasic dampened waveforms. LEFT LEG: Ankle-brachial index: 0.87 Segmental BP: PT = 107 DP = 111 Left ankle PVR: Biphasic dampened waveforms. JESSICA Reference: 0.9 - 1.4 = normal - no significant arterial disease 0.7 - 0.89 = mild peripheral arterial disease 0.51 - 0.69 = moderate peripheral arterial disease 0.50 = severe peripheral arterial disease FINDINGS: Atheromatous Plaque: Moderate scattered atheromatous plaque bilaterally. RIGHT FEMORAL RUNOFF VELOCITIES: The right common femoral artery measures 211 cm/s and triphasic. (Moderate stenosis by velocity criteria) The right profunda femoral artery is 189 cm/s and is biphasic. (Mild stenosis by velocity criteria) The right proximal superficial femoral artery measures 156 cm/s and biphasic. (Mild stenosis by velocity criteria) The right mid superficial femoral artery is 146 cm/s and biphasic. (Mild stenosis by velocity criteria) The right distal right superficial femoral artery measures 113 cm/s and is biphasic. The right popliteal velocity measures 118 cm/s and is biphasic. The right posterior tibial artery velocity measures 94 cm/s and is biphasic. The right peroneal artery mid aspect velocity measures 60 cm/s, and is biphasic. The right anterior tibial artery measures 44 cm/s, and is biphasic. The right dorsalis pedis artery velocity measures 44 cm/s, and is biphasic. LEFT FEMORAL RUNOFF VELOCITIES: The left common femoral artery measures 235 cm/s and triphasic. (Moderate stenosis by velocity criteria) The left profunda femoral artery is 148 cm/s and is biphasic. (Mild stenosis by velocity criteria) The left proximal superficial femoral artery measures 178 cm/s and biphasic. (Mild stenosis by velocity criteria) The left mid superficial femoral artery is 124 cm/s and biphasic. The left distal right superficial femoral artery measures 114 cm/s and is biphasic. The left popliteal velocity measures 140 cm/s and is biphasic. (Mild stenosis by velocity criteria) The left posterior tibial artery velocity measures 62 cm/s and is biphasic. The left peroneal artery mid aspect velocity measures 36 cm/s, and is biphasic. The left anterior tibial artery measures 27 cm/s, and is biphasic. The left dorsalis pedis artery measures 36 cm/s and is biphasic. US/US arterial duplex BI w/ JESSICA IMPRESSION: 1. There is scattered moderate atheromatous plaque bilaterally. There is evidence of moderate to severe peripheral artery disease bilaterally, similar to the prior examination. See above for details. 2. Normal right JESSICA at 1.08, with biphasic dampened waveforms suggesting moderate peripheral artery disease. 3. Slightly abnormal left JESSICA at 0.87, with biphasic dampened waveform suggesting moderate peripheral artery disease. Electronically signed by: Paul Mancera MD 11/18/2024 09:13 AM EDT RP
== END 2024-11-07 09:19 | disposition home or self-care (01) ==
LOC: HO.US 09:18
PROVIDERS: PCP Internal Medicine; Visit Provider Surgery Vascular Surgery
DX: I73.9 Peripheral vascular disease, unspecified (principal)
CPT/HCPCS: 93922; 93925

== ENCOUNTER → 2024-11-07 09:20 | Outpatient (BNV) | payer OTHER, SELFPAY | PROVIDERS: PCP Internal Medicine; Visit Provider Radiology Diagnostic Radiology | DX: I73.9 Peripheral vascular disease, unspecified (principal) | CPT/HCPCS: 93922; 93925 ==

== ENCOUNTER 2024-12-02 12:59 | Outpatient (AMB) | payer OTHER, SELFPAY ==
--- NOTE | 2024-12-02 13:02 | A.OFFVIS_ITS ---
Intake Visit Reasons: follow up s/p Arterial US 11/07/24 Intake Note: Patient presents for arterial US follow up. Patient states she is experiencing pain while walking. Accompanied by: Self / Same As Patient Allergies acetaminophen (From TYLENOL) Allergy (Unknown, Verified 12/02/24 13:03) UNKNOWN Penicillins (PENICILLINS) Allergy (Unknown, Verified 12/02/24 13:03) UNKNOWN HPI HPI follow up s/p Arterial US 11/07/24: Details: The patient is a 69-year-old female presenting for routine arterial surveillance follow-up. She experiences intermittent claudication, with leg fatigue and aching after walking a block, which varies with daily conditions. The symptoms have persisted for over a year, with improvement in the sensation of balls on the bottom of h er feet. She occasionally experiences coldness in the left foot, less severe than a year ago. She now presents for follow-up with noninvasive vascular testing. [facility] Family History Mother Cardiac arrest Social History Patient Tobacco Use Status: Never used Tobacco Review of Systems Const All systems reviewed & are unremarkable except as noted in HPI and below Reports no additional complaints ENT Reports Normal hearing present Card Denies chest pain, Denies chest pain at rest, Denies chest pain with activity and Denies pedal edema Resp Denies cough GI Denies abdominal pain Musc Denies abnormal gait, Denies muscle cramps and Denies radiating pain into limb Skin/Breast Denies skin ulcer and Denies wounds Neuro Reports Normal hearing present and Denies abnormal gait Psych Reports no additional complaints Physical Exam Const General: cooperative, healthy appearing and comfortable Orientation/consciousness: oriented to person, oriented to place and oriented to time HEENT Head: Yes normal to inspection Neck Neck: Yes normal visual inspection Carotids: no bruits Chest Chest palpation & inspection: normal inspection of the chest Resp Effort & Inspection: normal respiratory effort and able to speak in complete sentences Auscultation: clear to auscultation bilaterally, no crackles, no rales, no rhonchi and no wheezes Cardio Other: Bilateral DP signals Rate: regular rate Rhythm: regular rhythm Heart sounds: S1 normal heart sound present and S2 normal heart sound present Bruits: no carotid bruits GI Inspection: Yes normal to inspection Skin Wounds: no wounds Hair: normal Neuro General: oriented to person, oriented to place and oriented to time Cranial nerves: Yes CN's II-XII intact bilaterally and Yes Normal hearing present Cognition (Neuro): normal cognition Motor exam (neuro): 5/5 motor strength present throughout Extrem Other: venous exam: No significant superficial varicosities or spider telangiectasias, minimal edema General: No clubbing, No cyanosis and No edema Psych Appearance: grossly normal Mental Status: mental status grossly normal Speech and movement: Normal speech and movement present Results Reviewed Results Reviewed: Noninvasive arterial testing dated 11/07/2024 demonstrates JESSICA on the right of 1.08 and on the left of 0.87. Written report and images were reviewed. Assessment & Plan Assessment & Plan (1) PAD (peripheral artery disease): Code(s): I73.9 - Peripheral vascular disease, unspecified Category: Medical Plan: I discussed with the patient the current status of her peripheral artery disease, noting the ultrasound results showing near-normal findings on the right and a 0.87 on the left. We talked about the importance of monitoring her symptoms and agreed on a six-month follow-up to reassess her condition. I explained that if her symptoms worsen, we might consider an angiogram to determine if further intervention is necessary. Orders: Orders US arterial duplex LE BI 6 Months I73.9 - Peripheral vascular disease, unspecified Coding Level of Care Code Est Pt Level 4 (13041) Diagnoses PAD (peripheral artery disease) I73.9
== END 2024-12-02 13:21 | disposition home or self-care (01) ==
LOC: HO.HVS 12:59
PROVIDERS: PCP Internal Medicine; Visit Provider Surgery Vascular Surgery
DX: I73.9 Peripheral vascular disease, unspecified (principal)
CPT/HCPCS: 99214

== ENCOUNTER 2025-02-12 09:20 | Outpatient (AMB) | payer OTHER, SELFPAY ==
--- NOTE | 2025-02-12 09:25 | AM.OFFWIN_ITS ---
Intake Vital Signs 02/12/25 09:26 Height 5 ft 4 in Weight 134 lb BMI 23.0 BP 138/70 Blood Pressure Location Lt brachial Position Sitting Pulse 62 Pulse Source Pulse Oximeter Temp 98.0 F Temp Source Oral Pulse Oximetry (%) 94 Oxygen Delivery Method Room Air Intake Visit Reasons: ep congested cough ear ache since covid 2wks ago Intake Note: pt presents with right ear pain x1 day with sinus & chest congestion with coughing ongoing after positive covid 2 wks ago Patient Tobacco Use Status: Never used Tobacco Allergies acetaminophen (From TYLENOL) Allergy (Unknown, Verified 02/12/25 09:27) UNKNOWN Penicillins (PENICILLINS) Allergy (Unknown, Verified 02/12/25 09:27) UNKNOWN Do you need a note to return to daycare/school/sports/work: No HPI HPI Comments History of Present Illness Details 69 y/o Female patient who presents to [facility] walk [facility] with c/o URI symptoms. Pt c/o Sinus/chest congestion, and cough for about 2 weeks. She tested positive for COVID-19 2 weeks ago used Home test. She has been using variety of oTC remedies with no relief. Denies fevers, chills, nausea or vomiting. Sh ehas good appetite and has been hydrating well. [facility] [place] Medical History (Updated 02/12/25 @ 09:55 by Maggy Butcher NP) Allergic rhinitis Cough Family History Mother Cardiac arrest Social History Patient Tobacco Use Status: Never used Tobacco Review of Systems Const All systems reviewed & are unremarkable except as noted in HPI and below Physical Exam Vital Signs: Last Vital Signs Temp 98.0 F 02/12/25 09:26 Pulse 62 02/12/25 09:26 BP 138/70 02/12/25 09:26 Pulse Ox 94 02/12/25 09:26 Oxygen Delivery Method Room Air 02/12/25 09:26 BMI result Body Mass Index 23.0 Const General: comfortable and no acute distress Nutritional Appearance: well nourished Orientation/consciousness: patient oriented x3 HEENT Head: Yes normocephalic Ears: external ears normal and TM's normal bilaterally General nose exam: Abnormal mucous membranes and turbinates present erythematous bilateral and Nasal discharge present Face and sinus: Yes sinuses nontender Mouth: moist mucous membranes Throat: Yes uvula midline Resp Effort & Inspection: normal respiratory effort and able to speak in complete sentences Auscultation: clear to auscultation bilaterally, no crackles, no rales, no rhonchi and no wheezes Cardio Heart sounds: S1 normal heart sound present and S2 normal heart sound present Neuro General: patient oriented x3 Assessment & Plan Assessment & Plan (1) Cough: Code(s): R05.9 - Cough, unspecified Qualifiers: Cough type: subacute Qualified Code(s): R05.2 - Subacute cough Plan: No need for Chest Xray at this time - Lungs CTA Ordered some cough medicines (2) Allergic rhinitis: Code(s): J30.9 - Allergic rhinitis, unspecified Plan: Ordered Decongestant medicine. Medications: New dextromethorphan polistirex ER (Delsym 12 hour) 10 mL PO Q12H 89 mL 0RF cough R05.2 - Subacute cough benzonatate 200 mg (2 x 100 mg) PO BID 60 caps 0RF R05.2 - Subacute cough cetirizine (Zyrtec) 10 mg PO DAILY 30 tabs 0RF J30.9 - Allergic rhinitis, unspecified Coding Level of Care Code Est Pt Level 4 (39945) Diagnoses Subacute cough R05.2 Cough type: subacute Allergic rhinitis J30.9 Time Spent (min) 20
[2025-02-12 09:26] VITALS: BP 138/70; PULSE 62; TEMP 36.7; O2SAT 94; BMI 23.0
== END 2025-02-12 10:02 | disposition home or self-care (01) ==
PROVIDERS: PCP Internal Medicine; Visit Provider Nurse Practitioner Family
DX: R05.2 Subacute cough (principal); J30.9 Allergic rhinitis, unspecified